=== PATIENT | female | born 1975 | race Caucasian/White ===

== ENCOUNTER 2016-12-31 23:09 | Emergency (ER) | payer SELFPAY ==
--- NOTE | ~2016-12-31 | ER ---
PATIENT'S NAME: CHITO COMBS [facility] AGE: 41 Y [address] ROOM: [place] [id number] LOCATION: ED ADMIT DATE: 12/31/2016 ER/Outpatient Report DISCHARGE DATE: 01/01/2017 FAMILY PHYSICIAN: PHYSICIAN, NO ATTENDING PHYSICIAN: Ron Fernández Time of Arrival: 2309 hours. Time of Evaluation: 0010 hours. CHIEF COMPLAINT: This is a 41-year-old female with history of thoracic outlet syndrome, in with complaining of chronic swelling of the right hand and pain due to the swelling of her right hand. HISTORY OF PRESENT ILLNESS: She reports that for the past several months, her right hand has been swollen. It has gotten worse over the past couple of weeks. PAST MEDICAL HISTORY: Significant for thoracic outlet syndrome, previous similar episodes. CURRENT MEDICATIONS: None. REVIEW OF SYSTEMS: Otherwise negative. SOCIAL HISTORY: She is a nonsmoker. PHYSICAL EXAMINATION: GENERAL: Alert, cooperative female, in no acute distress. VITAL SIGNS: Stable. SKIN: Warm and dry. Color is normal. EXTREMITIES: Revealed moderate swelling of her right hand extending to the wrist. The rest of her exam is unremarkable. 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 PLAN: Compressive wrap and elevate. Follow up with her regular doctor as needed. PATIENT'S NAME: CHITO COMBS [facility] AGE: 41 Y [address] ROOM: [place] [id number] LOCATION: [facility] ADMIT DATE: 12/31/2016 ER/Outpatient Report DISCHARGE DATE: 01/01/2017 FAMILY PHYSICIAN: PHYSICIAN, NO ATTENDING PHYSICIAN: Ron Fernández RON FERNÁNDEZ MD JDB/modl /[id number] d: 01/01/17811 t: 01/29/17 0957, OUTPATIENT REPORT
== END 2017-01-01 00:35 | disposition disaster alternative care site (69) ==
LOC: GMED 23:09
PROC: 2W3CX1Z Immobilization of Right Lower Arm using Splint (ICD-10-PCS; principal; 2017-01-01)
DX: I89.0 Lymphedema, not elsewhere classified (principal); G54.0 Brachial plexus disorders
CPT/HCPCS: J1885